=== PATIENT | male | born 1965 | race Caucasian/White ===

== ENCOUNTER 2020-10-12 13:03 | Emergency (ER) | payer BC ==
[~2020-10-12] VITALS: Ht 177.8 cm; Wt 70.3 kg
[2020-10-12] MEDS ORDERED: ARMOUR THYROID30 M1 PO (13:12)
[2020-10-12 14:29] LABS: ABSOLUTE BASOPHILS 0.1 thou/uL (0.0-0.2); ABSOLUTE EOSINOPHILS 0.5 thou/uL (0.0-0.7); ABSOLUTE LYMPHOCYTES 2.5 thou/uL (0.8-5.3); ABSOLUTE MONOCYTES 0.9 thou/uL (0.0-1.2); ABSOLUTE NEUTROPHILS 9.4 thou/uL (1.6-8.1); BASOPHILS 1.1 %; EOSINOPHILS 3.9 %; HEMATOCRIT 37.5 % (42.0-52.0); HEMOGLOBIN 12.5 gm/dL (14.0-18.0); LYMPHOCYTES 18.5 %; MCH 29.6 pg (26.0-34.0); MCHC 33.4 g/dL (28.0-37.0); MCV 88.7 fL (80.0-100.0); MONOCYTES 6.5 %; MPV 7.5 fl. (7.2-11.1); NUCLEATED RBCS 0 /100WBC; PLATELET COUNT* 323 thou/uL (150-400); RBC 4.22 mil/uL (4.50-6.00); RDW-CV 14.7 % (10.5-14.5); WBC 13.5 thou/uL (4.0-11.0)
[2020-10-12 14:40] LABS: CREATININE 0.9 mg/dL (0.6-1.3); POTASSIUM 4.3 mmol/L (3.5-5.1)
[2020-10-12 14:50] LABS: ALBUMIN 3.8 g/dL (3.4-5.0); TOTAL BILIRUBIN 0.3 mg/dL (<0.1-1.0); TOTAL PROTEIN 7.3 g/dL (6.4-8.2)
[2020-10-12 16:12] VITALS: BP 122/72
--- NOTE | 2020-10-13 11:23 | EKG ---
[place] [address] ELECTROCARDIOGRAM REPORT Name: BERNADETTE DE LA OY [id number] Admission: 10/12/20 Attend Phys: Discharge: 10/12/20 Date of : 67 Date of Service: 10/12/20 1306 Report #: [id number] THIS REPORT FOR: //name// [facility] ED Test Date: 2020-10-12 Test Time: 13:06:29 Pat Name: AILIN DE LA O Department: Room: Gender: [employer] Specialist: [facility] : 1965 Requested By: Nicolás Singh Order Number: [id number] MD: Nasim Stearns Measurements Intervals [place] Rate: 77 P: 70 ND: 153 QRS: 69 QRSD: 88 T: 66 QT: 371 QTc: 420 Interpretive Statements Sinus rhythm ST elev, probable normal early repol pattern No previous ECG available for comparison Electronically Signed On 10-13-2020 11:22:53 CDT by Nasim Stearns [email or web address] <ELECTRONICALLY SIGNED> By: Nasim Stearns MD, [facility] 10/13/20 1122 1306 130 Nasim Stearns MD, FACC /EPI
== END 2020-10-12 16:13 | disposition home or self-care (01) ==
LOC: M.ERS 13:03
PROVIDERS: Family Medicine
DX: R07.89 Other chest pain (principal); E03.9 Hypothyroidism, unspecified; F17.210 Nicotine dependence, cigarettes, uncomplicated